=== PATIENT | female | born 1945 | race Caucasian/White ===

== ENCOUNTER 2020-07-10 10:37 | Emergency (ER) | payer OTHER ==
[2020-07-10] MEDS ORDERED: FLUORESCEIN NA 1 EA STRIP ONE ×2 (10:46→11:02)
[2020-07-10] MEDS ORDERED: TETRACAINE 0.5% HCL 0.6ML DROPPER.BOTTLE OD STA (10:46)
[2020-07-10] MEDS ORDERED: TETRACAINE 0.5% OPHTH SOLN 2 ML BOTTLE ONE (10:46)
[2020-07-10 10:52] VITALS: BP 179/77; PULSE 87; TEMP 98.1; BMI 24.9
[2020-07-10] MEDS ORDERED: FLUORESCEIN NA 1 EA STRIP OD STA (10:55)
[2020-07-10] MEDS ORDERED: OFLOXACIN 0.3% OPHTHALMIC SOLUTION 5 ML BOTTLE OD STA (11:09)
[2020-07-10] MEDS ORDERED: ERYTHROMYCIN 0.5% OPHTHALMIC OINTMENT 3.5 GM TUBE ONE (11:13)
[2020-07-10] MEDS ORDERED: ERYTHROMYCIN 0.5% OPHTHALMIC OINTMENT 3.5 GM TUBE OD STA (11:13)
== END 2020-07-10 11:47 | disposition home or self-care (01) ==
LOC: FER 10:37
DX: S05.01XA Injury of conjunctiva and corneal abrasion without foreign body, right eye, initial encounter (principal); H57.11 Ocular pain, right eye
CPT/HCPCS: 99284-25